=== PATIENT | male | born 1990 | race American Indian/Alaskan Native ===

== ENCOUNTER 2020-10-16 13:48 | Emergency (ER) | payer SELFPAY ==
[2020-10-16 13:55] VITALS: BP 130/80
--- NOTE | 2020-10-16 15:30 | Emergency Department Report ---
ED General Adult HPI - General Chief complaint: Earache Stated complaint: LT EAR PAIN/BLOCKAGE Time Seen by Provider: 10/16/20 15:21 Source: patient Mode of arrival: Ambulatory Limitations: No Limitations - History of Present Illness Initial comments: 30-year-old male patient with history of recurrent cerumen impaction presents emergency department complaints of nontraumatic left ear pain starting yesterday. Ear himself at home with limited relief. He also attempted to use a Debrox kit without success. He is not currently under the care of a primary care provider or ENT specialist. Denies fever, chills, sore throat, cough, congestion. Denies all other complaints at this time. - Related Data Previous Rx's Medication Instructions Recorded Last Taken Type Docusate Sodium [Colace ORAL LIQ] 15 drops OTIC PRN PRN #1 bottle 10/16/20 Unknown Rx Allergies Allergy/AdvReac Type Severity Reaction Status Date / Time No Known Allergies Allergy Unverified 10/16/20 13:52 ED Review of Systems ROS: Stated complaint: LT EAR PAIN/BLOCKAGE Other details as noted in HPI Other: GENERAL: Negative for fever. ENT: Positive for ear pain. CARDIOVASCULAR: Negative for chest pain. PULMONARY: Negative for shortness of breath. GASTROINTESTINAL: Negative for abdominal pain. MUSCULOSKELETAL: Negative for back pain. NEUROLOGICAL: Negative for headache. INTEGUMENTARY: Negative for rash. ED Past Medical Hx - Past Medical History Previous Medical History?: No - Surgical History Past Surgical History?: No - Social History Smoking Status: Never Smoker - Medications Home Medications: Home Medications Medication Instructions Recorded Confirmed Last Taken Type Docusate Sodium [Colace ORAL LIQ] 15 drops OTIC PRN PRN #1 bottle 10/16/20 Unknown Rx ED Physical Exam - General Limitations: No Limitations - Other Other exam information: General: Awake, appropriately interactive, no acute distress. ENT: Minimal amount of cerumen to the right ear canal. Moderate amount of cerumen to the left ear canal. Partially visualized tympanic membrane without bulging or erythema. No mastoid tenderness. Neck: Supple. Full range of motion intact. Cardiovascular: Normal peripheral perfusion. Pulmonary: No respiratory distress. Patient is speaking normally without use of accessory muscles. Skin: No apparent rashes or lesions. Neurological: No facial asymmetry. Speech is clear. Follows commands. Patient is alert and oriented. Musculoskeletal: Moves all four extremities spontaneously with normal range of motion. Psych: Cooperative. Appropriate mood and affect. ED Course Vital Signs 10/16/20 13:52 Temperature 99.7 F H Pulse Rate 63 Respiratory 20 Rate Blood Pressure 130/80 O2 Sat by Pulse 96 Oximetry ED Medical Decision Making - Medical Decision Making Differential diagnosis including but not limited to: otitis media, otitis externa, cerumen impaction, mastoiditis, perforated tympanic membrane Patient presents emergency department with signs/symptoms of left cerumen impaction. Patient is immunocompetent without evidence of concomitant infectious process. No clinical indication for emergent cerumen disimpaction. Patient will be discharged home with appropriate prescriptions and referrals to both primary care provider/ENT for further outpatient management. Patient expressed understanding and is agreeable to plan of care. Strict return precautions provided. Repeat exam is unremarkable and benign. History, exam, diagnostic testing, and current condition do not suggest worrisome pathology to warrant further testing, continued ED treatment, admission, or surgical evaluation at this point. Given the low probability of a significant medical illness, it would be more likely to result in harm than benefit to perform further testing at this stage. Discussed findings, presumptive diagnosis, need for follow-up and specific signs/symptoms that should prompt immediate return to the emergency department. Instructions were explained in detail to the patient in addition to giving written discharge information. Patient expressed understanding and was given the opportunity to ask questions, all of which were satisfactorily answered prior to discharge home. Critical care attestation.: If time is entered above; I have spent that time in minutes in the direct care of this critically ill patient, excluding procedure time. ED Disposition Clinical Impression: Left ear impacted cerumen Disposition: DC-01 TO HOME OR SELFCARE Is pt being admited?: No Does the pt Need Aspirin: No Condition: Stable Instructions: Earwax Buildup, Adult Additional Instructions: Take Tylenol every 4 hours and Motrin every 8 hours as needed for pain. Use Colace drops as directed for earwax removal. Lie on your side with the affected ear facing up and instill 1 mL (about 15 drops) of liquid Colace into the ear. Let the liquid sit in the ear for 15 minutes so it can work. After 15 minutes, rinse the affected ear with warm water so that you can get the softened earwax out of your canal. Follow-up with primary care provider and/or ENT this week. Call tomorrow to schedule an appointment. See referral information below. Return to the emergency department immediately for new or worsening symptoms. Prescriptions: Docusate Sodium [Colace ORAL LIQ] 15 drops OTIC PRN PRN #1 bottle PRN Reason: Ear Pain Referrals: [facility] [Provider Group] - 3-5 Days MARIAN NOEL MD [Staff Physician] - 3-5 Days Time of Disposition: 15:31
== END 2020-10-16 16:08 | disposition home or self-care (01) ==
LOC: ED 13:48
DX: H61.22 Impacted cerumen, left ear (principal); Z79.899 Other long term (current) drug therapy
CPT/HCPCS: 99282